=== PATIENT | female | born 1980 | race Two or more races ===

== ENCOUNTER 2019-04-05 06:38 | Emergency (ER) | payer SELFPAY ==
[~2019-04-05] VITALS: Ht 149.9 cm; Wt 56.7 kg
[2019-04-05 08:13] LABS: Urine Bacteria FEW /hpf (None Seen); Urine Blood Negative /uL (Negative); Urine Mucus FEW (None Seen); Urine Specific Gravity 1.027 (1.001-1.035); Urine WBC <1 /hpf (0 - 5)
[2019-04-05 08:28] VITALS: BP 106/51
== END 2019-04-05 09:09 | disposition home or self-care (01) ==
LOC: ER 06:38
DX: N39.0 Urinary tract infection, site not specified (principal)
CPT/HCPCS: 81001